=== PATIENT | female | born 1995 | race Caucasian/White ===

== ENCOUNTER 2017-11-03 11:58 | Emergency (ER) | payer OTHER ==
[~2017-11-03] VITALS: Ht 160 cm; Wt 65.9 kg
[~2017-11-03 11:58] MED LIST: ACET50TA PO; COLA100C5 PO; DIBU1OIN TOP; IBUP-1114 PO; PRENTAB9 PO; RANI15TA PO; STUACAP PO
[2017-11-03 11:59] VITALS: BP 125/82
[2017-11-03] MEDS ORDERED: CEFD1CAP8 PO (12:59)
--- NOTE | 2017-11-04 08:40 | ECGEPIP ---
Stationary ECG Study [facility] - ED Test Date: 2017-11-03 Pat Name: XIOMY GRACIA Department: Room: - Gender: F [employer] Re[employer]: amari : [id number] Requested By: KEV MCKEON Order Number: [id number] Reading MD: Esther Pratt Measurements Intervals [place] Rate: 91 P: 40 WY: 104 QRS: 56 QRSD: 109 T: 20 QT: 340 QTc: 419 Interpretive Statements SINUS RHYTHM WITH MARKED SINUS ARRHYTHMIA WITH SHORT WY INTERVAL NO PRIOR FOR COMPARISON Electronically Signed On 11-04-2017 8:40:32 EST by Esther Pratt
== END 2017-11-03 12:56 | disposition home or self-care (01) ==
LOC: M ED 11:58
DX: O99.89 Other specified diseases and conditions complicating pregnancy, childbirth and the puerperium (principal); M54.6 Pain in thoracic spine; H69.90 Unspecified Eustachian tube disorder, unspecified ear; Z3A.15 15 weeks gestation of pregnancy

== ENCOUNTER 2018-04-13 21:14 | Inpatient (IN) | payer OTHER ==
[2018-04-13] MEDS ORDERED: ONDANSETRON 4MG/2ML VIAL (J2405) IV (22:30)
[2018-04-13] MEDS: METHYLERGONOVINE MALEATE 0.2 MG/ML VIAL (J2210) IM (22:30)
[2018-04-13] MEDS ORDERED: METHYLERGONOVINE MALEATE 0.2 MG/ML VIAL (J2210) IM (22:30)
[2018-04-13] MEDS ORDERED: MEASLES,MUMPS,RUBELLA VACCINE INJ (MMR-II) (90707) SC (22:30)
[2018-04-13] MEDS ORDERED: DIBUCAINE 1% OINTMENT 30GM TOP (22:30)
[2018-04-13] MEDS ORDERED: RHOGAM 300 MCG (1500 IU) INJ (J2790) IM (22:30)
[2018-04-13] MEDS ORDERED: PROMETHAZINE 25 MG TAB PO (22:30)
[2018-04-13] MEDS: OXYTOCIN INJ 10 UNITS/ML VIAL (J2590) IM (22:30)
[2018-04-13 23:07] LABS: HEMOGLOBIN 10.7 g/dl (12.0-15.5); MEAN CORPUSCULAR HEMOGLOBIN 26.2 pg (27.0-33.0); MEAN CORPUSCULAR HGB CONC 32.4 g/dl (32.0-36.5); MEAN CORPUSCULAR VOLUME 80.9 fl (80.0-96.0); PLATELET COUNT, AUTOMATED 222 10^3/uL (150-450); RED BLOOD COUNT 4.08 10^6/uL (4.00-5.40); RED CELL DISTRIBUTION WIDTH 15.7 % (11.5-14.5); WHITE BLOOD COUNT 12.1 10^3/uL (4.0-10.0)
[2018-04-14] MEDS: ACETAMINOPHEN 500 MG TAB PO ×2 (05:55→16:21)
[2018-04-14] MEDS: PRENATAL VITAMINS CHEWABLE TABLET PO (09:42)
[2018-04-14] MEDS: DOCUSATE SODIUM 100 MG CAP PO ×2 (09:43→19:57)
[2018-04-14] MEDS: IBUPROFEN 800 MG TAB PO (09:45)
[2018-04-15] MEDS: IBUPROFEN 800 MG TAB PO (03:30)
[2018-04-15] MEDS: PRENATAL VITAMINS CHEWABLE TABLET PO (09:40)
[2018-04-15] MEDS: DOCUSATE SODIUM 100 MG CAP PO (09:40)
== END 2018-04-15 12:45 | disposition home or self-care (01) | DRG 775 ==
LOC: M LDO 21:14 → M OBS 04-14 00:14 → M LDI 22:11
PROVIDERS: Obstetrics & Gynecology
PROC: 10E0XZZ Delivery of Products of Conception, External Approach (ICD-10-PCS; principal; 2018-04-13)
DX: O80 Encounter for full-term uncomplicated delivery (principal); Z3A.38 38 weeks gestation of pregnancy; Z37.0 Single live birth

== ENCOUNTER → 2019-09-18 | Outpatient (CLI) | payer OTHER ==
[~2019-09-18] MED LIST changes: -ACET50TA PO; +CEFD1CAP8 PO; +MAPA500T2 PO
[2019-09-18 19:02] LABS: BASO % 0.4 % (0.0-1.0); EOS # 0.3 10^3/uL (0.0-0.5); EOS % 5.5 % (0.0-3.0); HEMATOCRIT 43.3 % (36.0-47.0); HEMOGLOBIN 14.2 g/dl (12.0-15.5); LYMPH # 1.7 10^3/uL (1.5-5.0); LYMPH % 34.3 % (24.0-44.0); MEAN CORPUSCULAR HEMOGLOBIN 29.9 pg (27.0-33.0); MEAN CORPUSCULAR HGB CONC 32.8 g/dl (32.0-36.5); MEAN CORPUSCULAR VOLUME 91.2 fl (80.0-96.0); MONO # 0.4 10^3/uL (0.0-0.8); MONO % 8.9 % (0.0-5.0); NEUTROPHILS # 2.5 10^3/uL (1.5-8.5); NEUTROPHILS % 50.9 % (36.0-66.0); PLATELET COUNT, AUTOMATED 273 10^3/uL (150-450); RED BLOOD COUNT 4.75 10^6/uL (4.00-5.40); WHITE BLOOD COUNT 4.9 10^3/uL (4.0-10.0)
[2019-09-18 19:16] LABS: ALBUMIN 3.6 GM/DL (3.2-5.2); ALT/SGPT 44 U/L (12-78); BILIRUBIN,TOTAL 0.4 MG/DL (0.2-1.0); BLOOD UREA NITROGEN 15 MG/DL (7-18); CALCIUM LEVEL 8.4 MG/DL (8.5-10.1); CARBON DIOXIDE LEVEL 27 MEQ/L (21-32); CHLORIDE LEVEL 105 MEQ/L (98-107); FERRITIN 39 NG/ML (8-252); FREE T4 0.78 NG/DL (0.76-1.46); GLOMERULAR FILTRATION RATE > 60.0 (>60); GLUCOSE, FASTING 94 MG/DL (70-100); IRON (FE) 98 UG/DL (50-170); POTASSIUM SERUM 4.5 MEQ/L (3.5-5.1); SODIUM LEVEL 139 MEQ/L (136-145); THYROID STIMULATING HORMONE 0.877 uIU/ML (0.358-3.740); TOTAL IRON BINDING CAPACITY 297 UG/DL (250-450); TOTAL PROTEIN 7.1 GM/DL (6.4-8.2)
== END ==
LOC: M LRY 10:17
PROVIDERS: ATTEND Physician Assistant
DX: R53.83 Other fatigue (principal)

== ENCOUNTER 2020-01-11 08:45 | Day surgery (SDC) | payer OTHER ==
[~2020-01-11] VITALS: Ht 157.5 cm; Wt 81.6 kg
[~2020-01-11 08:45] MED LIST changes: +ALL10TAB29 PO; +BUPIVACAINE/EPIN 0.25% 30 ML VIAL As Ordered ONE; +KETO10TAB PO; +LR 1,000 ML IV ONE; +MIRE1IUD IU; +ONDA4TAB6 PO
[2020-01-11] MEDS ORDERED: PROZ10CA7 PO (09:08)
[2020-01-11] MEDS ORDERED: ROCURONIUM BROMIDE 50 MG/5 ML VIAL As Ordered ONE (09:19)
[2020-01-11] MEDS ORDERED: LIDOCAINE 2% INJ 100 MG/5 ML SDV (FOR ANES.) As Ordered ONE (09:19)
[2020-01-11] MEDS ORDERED: fentaNYL 250 MCG/5 ML INJECTION (J3010) As Ordered ONE (09:20)
[2020-01-11] MEDS ORDERED: propofoL 200 MG/20 ML VIAL As Ordered ONE (09:20)
[2020-01-11] MEDS ORDERED: MIDAZOLAM INJ 2 MG/2 ML VIAL (J2250) As Ordered ONE (09:21)
[2020-01-11] MEDS ORDERED: ePHEDrine SULFATE 25 MG/5 ML(5MG/ML) SYRINGE As Ordered ONE (10:09)
[2020-01-11] MEDS ORDERED: dexameTHASONE 4 MG/ML 1ML VIAL (J1100) As Ordered ONE (10:10)
[2020-01-11] MEDS ORDERED: METOCLOPRAMIDE INJ 10MG/2ML VIAL (J2765) As Ordered ONE (10:10)
[2020-01-11] MEDS ORDERED: ONDANSETRON 4MG/2ML VIAL (J2405) As Ordered ONE (10:10)
[2020-01-11] MEDS ORDERED: KETOROLAC 60 MG/2 ML VIAL (J1885) As Ordered ONE (10:10)
[2020-01-11] MEDS ORDERED: ACETAMINOPHEN 1000MG 100ML IV BTL (OFIRMEV) (J0131 PER 10MG) As Ordered ONE (10:11)
[2020-01-11] MEDS ORDERED: SUGAMMADEX SODIUM 500 MG/5 ML VIAL (BRIDION) As Ordered ONE (10:15)
[2020-01-11] MEDS ORDERED: fentaNYL 100 MCG/2 ML INJECTION (J3010) IV PRN (11:00)
[2020-01-11] MEDS ORDERED: NORCO, ANEXSIA 5/325MG TABLET (HYDROcodone/ACETAMINOPHEN) PO PRN (11:00)
[2020-01-11] MEDS ORDERED: LR 1,000 ML IV SCH (11:00)
[2020-01-11] MEDS ORDERED: ONDANSETRON 4MG/2ML VIAL (J2405) IV PRN (11:00)
[2020-01-11] MEDS ORDERED: oxyCODONE 5MG TAB PO PRN (11:00)
[2020-01-11 12:20] VITALS: BP 115/82
== END 2020-01-11 12:35 | disposition home or self-care (01) ==
LOC: M SDC 08:45
PROVIDERS: ATTEND Surgery
DX: K80.10 Calculus of gallbladder with chronic cholecystitis without obstruction (principal); K21.9 Gastro-esophageal reflux disease without esophagitis; Z79.899 Other long term (current) drug therapy
CPT/HCPCS: 47562; 81025; 88304; J0131; J1100; J1885; J2250; J2405; J2765; J3010